=== PATIENT | male | born 1980 | race Caucasian/White ===

== ENCOUNTER 2019-06-26 10:10 | Outpatient (CLI) | payer OTHER ==
--- NOTE | 2019-06-26 10:22 | RAD ---
Exam: Chest 2 views HISTORY:Cough Comparison: None FINDINGS: Lungs: No masses or consolidation. Cardiac silhouette: Normal size Pulmonary vessels: Normal Pleural Spaces: Clear Pneumothorax: None Osseous abnormalities: None of acuity. IMPRESSION: No focal consolidation.
== END 2019-06-26 10:11 | disposition home or self-care (01) ==
LOC: RAD-FRANK 10:10
PROVIDERS: ATTEND Nurse Practitioner Family
DX: R05 Cough (principal); R09.89 Other specified symptoms and signs involving the circulatory and respiratory systems
CPT/HCPCS: 71046